=== PATIENT | female | born 1995 | race African-American/Black ===

== ENCOUNTER 2019-03-26 15:30 | Inpatient (IN) | payer SELFPAY ==
[~2019-03-26] VITALS: Ht 160 cm; Wt 45.4 kg
[2019-03-26] MEDS ORDERED: FAMOTIDINE 20MG/2ML VIAL IV STA (16:25)
[2019-03-26] MEDS ORDERED: SODIUM CHLORIDE 0.9% 1,000 ML IV ONE (16:25)
[2019-03-26] MEDS ORDERED: MORPHINE SULFATE 4 MG/ML CPJ (NOT FOR IM USE) IV STA (16:25)
[2019-03-26] MEDS ORDERED: MAGNESIUM/ALUMINUM HYDROXIDE/SIMETHICONE 30ML UDC PO STA (16:25)
[2019-03-26] MEDS ORDERED: ONDANSETRON HCL 4MG/2ML INJ IV STA (16:25)
[2019-03-26 16:51] LABS: CLARITY URINE CLEAR (CLEAR); COLOR URINE YELLOW (YELLOW); KETONES URINE NEGATIVE (NEGATIVE); LEUKOCYTE ESTERASE URINE NEGATIVE (NEGATIVE); NITRITE URINE NEGATIVE (NEGATIVE); OCCULT BLOOD URINE NEGATIVE (NEGATIVE); PH URINE 7.5 (4.5-8.0); PROTEIN URINE NEGATIVE (NEGATIVE); SPECIFIC GRAVITY URINE 1.013 (1.005-1.030); UROBILINOGEN URINE 0.2 E.U./dL (0.2-1.0)
[2019-03-26 16:56] LABS: CHLORIDE 105 mEq/L (98-107)
[2019-03-26 16:58] LABS: BASOPHILS % 0.6 % (0.0-2.0); EOSINOPHILS % 3.4 % (0.0-5.0); HEMATOCRIT. 42.8 % (36.0-48.0); HEMOGLOBIN. 14.7 g/dL (12.0-16.0); LYMPHOCYTES % 36.3 % (20.0-50.0); MEAN CORPUSCULAR HEMOGLOBIN 33.3 pg (28.0-32.0); MEAN CORPUSCULAR VOLUME 97.2 fL (81.0-99.0); MEAN PLATELET VOLUME 8.1 fl (7.4-10.4); MONOCYTES % 5.9 % (2.0-8.0); NEUTROPHILS % 53.8 % (40.0-76.0); PLATELET 180 x1000/uL (130-400); RED CELL DISTRIBUTION WIDTH 12.8 % (11.6-14.6)
[2019-03-26 17:08] LABS: HCG SCREEN NEGATIVE
[2019-03-26] MEDS ORDERED: KETOROLAC 30MG/ML VIAL IV ONE (18:00)
[2019-03-26] MEDS ORDERED: LIDOCAINE HCL/PF 1% 10 MG/ML 5ML VIAL IJ ONE (18:45)
[2019-03-26] MEDS ORDERED: CEFAZOLIN 1000MG PREMIX 50 ML IV ONE (18:45)
[2019-03-26] MEDS ORDERED: MIDAZOLAM HCL 2 MG/2 ML VIAL IV ONE (18:45)
[2019-03-26] MEDS ORDERED: KETAMINE HCL 50 MG/ML 10ML IV ONE (18:45)
[2019-03-26] MEDS ORDERED: MIDAZOLAM HCL 2 MG/2 ML VIAL ONE (19:12)
[2019-03-26] MEDS ORDERED: MORPHINE SULFATE 4 MG/ML CPJ (NOT FOR IM USE) IV ONE ×2 (19:45→20:30)
[2019-03-26] MEDS ORDERED: ONDANSETRON HCL 4MG/2ML INJ IV ONE ×2 (19:45→20:30)
[2019-03-26] MEDS ORDERED: MAGNESIUM HYDROXIDE 400MG/5ML 30ML UDC PO PRN (22:00)
[2019-03-26] MEDS ORDERED: DEXT 5%/0.45% NACL 1000ML 1,000 ML IV SCH (22:00)
[2019-03-26] MEDS ORDERED: MAGNESIUM/ALUMINUM HYDROXIDE/SIMETHICONE 30ML UDC PO PRN (22:00)
[2019-03-26] MEDS ORDERED: ACETAMINOPHEN 325MG TABLET PO PRN (22:00)
[2019-03-26] MEDS ORDERED: DIPHENHYDRAMINE 50MG/ML VIAL IV PRN (22:00)
[2019-03-26] MEDS ORDERED: IPRATROPIUM/ALBUTEROL 0.5-3(2.5)MG/3ML NEB INH PRN (22:00)
[2019-03-26] MEDS ORDERED: GUAIFENESIN 200MG/10ML SUGAR FREE UDC PO PRN (22:00)
[2019-03-26] MEDS ORDERED: LORAZEPAM 0.5MG TABLET PO PRN (22:00)
[2019-03-26] MEDS: HYDROMORPHONE HCL/PF 2MG/ML CPJ IV PRN (22:16)
[2019-03-26 22:41] VITALS: BP 120/76
[2019-03-27] VITALS (12 sets, daily range): BP systolic 97–122; BP diastolic 54–80
[2019-03-27] MEDS: HYDROMORPHONE HCL/PF 2MG/ML CPJ IV PRN ×6 (00:59→22:09)
[2019-03-27] MEDS ORDERED: FAMOTIDINE 20MG TABLET PO SCH (09:00)
[2019-03-27] MEDS ORDERED: BENZONATATE 100MG CAPSULE PO PRN (13:00)
[2019-03-27] MEDS: ONDANSETRON HCL 4MG/2ML INJ IV PRN (22:09)
[2019-03-28] VITALS (11 sets, daily range): BP systolic 96–145; BP diastolic 55–87
[2019-03-28] MEDS: HYDROMORPHONE HCL/PF 2MG/ML CPJ IV PRN ×5 (01:01→23:42)
[2019-03-28] MEDS: OMEPRAZOLE 20MG CAPSULE EXTENDED RELEASE PO SCH (08:36)
[2019-03-28] MEDS: ONDANSETRON HCL 4MG/2ML INJ IV PRN (23:51)
[2019-03-29] VITALS (13 sets, daily range): BP systolic 91–133; BP diastolic 46–82
[2019-03-29] MEDS: ONDANSETRON HCL 4MG/2ML INJ IV PRN ×3 (04:10→19:40)
[2019-03-29] MEDS: HYDROMORPHONE HCL/PF 2MG/ML CPJ IV PRN ×3 (04:11→19:33)
[2019-03-29] MEDS: OMEPRAZOLE 20MG CAPSULE EXTENDED RELEASE PO SCH (09:31)
[2019-03-30] VITALS (12 sets, daily range): BP systolic 97–128; BP diastolic 56–78
[2019-03-30] MEDS: HYDROMORPHONE HCL/PF 2MG/ML CPJ IV PRN ×3 (00:01→13:51)
[2019-03-30] MEDS: ONDANSETRON HCL 4MG/2ML INJ IV PRN ×3 (07:59→13:50)
[2019-03-31] VITALS (12 sets, daily range): BP systolic 94–119; BP diastolic 44–73
[2019-03-31] MEDS: ONDANSETRON HCL 4MG/2ML INJ IV PRN (00:30)
[2019-03-31] MEDS: HYDROMORPHONE HCL/PF 2MG/ML CPJ IV PRN (00:31)
[2019-03-31] MEDS: FAMOTIDINE 20MG TABLET PO SCH (08:44)
[2019-03-31] MEDS: HYDROCODONE/APAP 7.5/325MG 1 TAB TABLET PO PRN (20:33)
[2019-04-01] VITALS (13 sets, daily range): BP systolic 80–160; BP diastolic 32–79
[2019-04-01] MEDS: HYDROCODONE/APAP 7.5/325MG 1 TAB TABLET PO PRN (04:44)
[2019-04-01] MEDS: FAMOTIDINE 20MG TABLET PO SCH (10:01)
== END 2019-04-01 17:24 | disposition home or self-care (01) | DRG 143 ==
LOC: ER 15:32 → 5EST 20:05 → ENRESERV 20:12 → EDBEDREQTM 20:14 → EDBEDREQ 20:14 → 5EST 23:35
PROVIDERS: ADMIT Internal Medicine; ATTEND Internal Medicine
PROC: 0W9B00Z Drainage of Left Pleural Cavity with Drainage Device, Open Approach (ICD-10-PCS; principal; 2019-03-26)
DX: J93.83 Other pneumothorax (principal); J96.00 Acute respiratory failure, unspecified whether with hypoxia or hypercapnia; Z82.5 Family history of asthma and other chronic lower respiratory diseases; N28.1 Cyst of kidney, acquired; F12.90 Cannabis use, unspecified, uncomplicated
CPT/HCPCS: 36415; 71045; 74176; 81003; 84484; 84703; 96360; 96361; 99285; J0690; J1170; J1885; J2250; J2270; J2405; J3490; J7030

== ENCOUNTER 2019-04-16 15:39 | Emergency (ER) | payer SELFPAY ==
[~2019-04-16] VITALS: Ht 154.9 cm; Wt 46.9 kg
[2019-04-16 17:31] VITALS: BP 132/79
== END 2019-04-16 17:31 | disposition home or self-care (01) ==
LOC: ER 15:39
DX: Z48.02 Encounter for removal of sutures (principal)
CPT/HCPCS: 71045; 99283

== ENCOUNTER 2020-08-11 18:25 | Emergency (ER) | payer SELFPAY ==
[~2020-08-11] VITALS: Ht 154.9 cm; Wt 50.0 kg
[2020-08-11 18:27] VITALS: BP 118/76
[2020-08-11] MEDS: ACETAMINOPHEN 325MG TABLET PO ONE (21:07)
== END 2020-08-11 21:51 | disposition home or self-care (01) ==
LOC: ER 18:25
DX: M54.5 Low back pain (principal); G89.11 Acute pain due to trauma; V49.40XA Driver injured in collision with unspecified motor vehicles in traffic accident, initial encounter; Y93.89 Activity, other specified; Y92.488 Other paved roadways as the place of occurrence of the external cause
CPT/HCPCS: 99282

== ENCOUNTER 2021-11-14 01:55 | Emergency (ER) | payer OTHER, MEDICAID ==
[~2021-11-14] VITALS: Ht 157.5 cm; Wt 59.0 kg
[2021-11-14 04:12] LABS: *AMPHETAMINES SCREEN URINE NEGATIVE (NEGATIVE); *BARBITURATES SCREEN URINE NEGATIVE (NEGATIVE); *BENZODIAZEPINES SCREEN URINE NEGATIVE (NEGATIVE); *COCAINE SCREEN URINE NEGATIVE (NEGATIVE); METHADONE URINE SCREEN NEGATIVE (NEGATIVE); OPIATES URINE SCREEN NEGATIVE (NEGATIVE)
[2021-11-14 04:13] LABS: PHENCYCLIDINE URINE SCREEN NEGATIVE (NEGATIVE)
[2021-11-14 04:15] LABS: CANNABINOID URINE SCREEN PRESUMTIVE POSITIVE (NEGATIVE)
[2021-11-14 05:00] VITALS: BP 105/57
[2021-11-14 05:33] LABS: BASOPHILS % 0.4 % (0.0-2.0); EOSINOPHILS % 0.4 % (0.0-5.0); HEMATOCRIT. 38.1 % (36.0-48.0); HEMOGLOBIN. 13.1 g/dL (12.0-16.0); MEAN CORPUSCULAR HEMOGLOBIN 32.9 pg (28.0-32.0); MEAN CORPUSCULAR VOLUME 95.9 fL (81.0-99.0); MEAN PLATELET VOLUME 7.4 fl (7.4-10.4); MONOCYTES % 6.5 % (2.0-8.0); NEUTROPHILS % 74.7 % (40.0-76.0); PLATELET 231 x1000/uL (130-400); RED BLOOD CELL COUNT 3.97 mill/uL (4.2-5.4); RED CELL DISTRIBUTION WIDTH 13.1 % (11.6-14.6)
[2021-11-14 05:41] LABS: CHLORIDE 113 mEq/L (98-107)
[2021-11-14 05:44] LABS: ETHANOL BLOOD 253 mg/dL
[2021-11-14 06:05] LABS: HCG SCREEN NEGATIVE
== END 2021-11-14 06:08 ==
LOC: ER 01:55
DX: F10.129 Alcohol abuse with intoxication, unspecified (principal); Y90.8 Blood alcohol level of 240 mg/100 ml or more; F12.10 Cannabis abuse, uncomplicated
CPT/HCPCS: 36415; 80048; 80305; 80320; 84703; 85025; 99283; G0480